=== PATIENT | female | born 2000 | race Caucasian/White ===

== ENCOUNTER 2022-05-29 00:42 | Emergency (ER) | payer MEDICAID ==
[~2022-05-29] VITALS: Ht 149.9 cm; Wt 105.9 kg
[2022-05-29 00:54] VITALS: TEMP 98.8
[2022-05-29] MEDS ORDERED: AMOXICILLIN 50500 MG PO (01:26)
[2022-05-29 02:37] VITALS: BP 129/71; PULSE 90
== END 2022-05-29 02:40 | disposition home or self-care (01) ==
LOC: COL.ER 00:42
DX: J02.9 Acute pharyngitis, unspecified (principal); K04.7 Periapical abscess without sinus
CPT/HCPCS: J1100

== ENCOUNTER 2024-01-27 06:20 | Emergency (ER) | payer OTHER ==
[~2024-01-27] VITALS: Ht 149.9 cm; Wt 104.5 kg
[~2024-01-27 06:20] MED LIST: AMOXICILLIN 50500 MG PO
[2024-01-27 06:21] VITALS: BP 128/89; TEMP 98.2
[2024-01-27] MEDS ORDERED: NAPROSYN500 MG PO (06:52)
[2024-01-27 07:17] VITALS: PULSE 81
== END 2024-01-27 07:17 | disposition home or self-care (01) ==
LOC: COL.ER 06:20
DX: S93.402A Sprain of unspecified ligament of left ankle, initial encounter (principal); W01.0XXA Fall on same level from slipping, tripping and stumbling without subsequent striking against object, initial encounter; Y92.89 Other specified places as the place of occurrence of the external cause; Y99.0 Civilian activity done for income or pay